=== PATIENT | male | born 1960 | race Caucasian/White ===

== ENCOUNTER → 2016-11-04 | Outpatient (CLI) | payer OTHER ==
[~2016-11-04] MED LIST: ACETAMINOPHEN325 MG PO; ACETYLCYSTE200 MG/M2 INH; ADULT ONE DAI200 MCG PO; ADVIL200 M1 PO; ALDACTONE25 MG PO; AMLODIPINE BESYL5 MG PO; ANTACID650 MG PO; ANTI-GAS166 MG PER TUBE; APAP500 PER TUBE; ARANESP 6060 MCG/0.3 SUBQ; CARDURA4 MG PER TUBE; CARVEDILOL3.125 MG PO; CATAPRES0.1 MG PO; CHOLESTYRAMINE P4 GM PER TUBE; CIPRO250 M2 PO; CLONIDINE-TTS0.3 MG TRANSDERM; CLOTRIMAZOLE 1%15 G1 TOP; COREG25 MG PO; COUMADIN 4 MG TA4 M1 PO; CREON 10 CAPSUL1 CA1 PER TUBE; CREON DR 12,001 EACH PO; DEMADEX20 MG PO; DUONEB 2.5-0.5 M3 ML INH; ERYTHROMYCIN250 MG PER TUBE; FLOMAX0.4 MG PO; FLORINEF ACETA0.1 MG PO; HEPARIN 1,100 UNIT/1 SUBQ; HUMULINR100; HUMULINR100 SUBQ; HYDRALAZINE HC100 MG PER TUBE; HYDROCERIN CREA1 JAR TOP; IBUPROFEN 400400 M1; IRON325 PO; KEFLEX500 MG PO; LANTISEPTIC OI113 GM TOP; LASIX 80 MG TAB80 MG PO; LEVEMIR FL100 UNIT/1 SUBQ; LEVEMIR SUBQ; LEVEMIR100 UNIT/1 SUBQ; LOMOTIL TABLET1 EACH PO; LOPERAMIDE 2 MG2 M1 PO; LOPERAMIDE2 MG PO; LOPRESSOR50 PER TUBE; MAGNESIUM400 MG PO; MUCINEX TA600 MG/TA2 PER TUBE; NICOTINE GUM2 MG PO; NITROGLYCERIN0.4 MG TOP; NORCO 5-325 TA1 EACH PO; NORVASC10 MG PER TUBE; NOVASOURCE REN237 ML PER TUBE; NOVOLOG100 UNIT/M; NOVOLOG100 UNIT/M SUBQ; ONDANSETRON HCL4 M2 IV PUSH; OXYCODONE HCL 55 MG PO; PANCRELIPASE PO; PEPCID20 MG PER TUBE; PERIOGARD473 ML MM; PRILOSEC 20 MG20 MG PO; PRINIVIL20 MG PER TUBE; PRINIVIL20 MG PO; PROBIOTIC1 EAC1 PER TUBE; PROTEIN975 MG PER TUBE; PROTONIX40 M1 PO; REGLAN10 MG IV PUSH; RENALCAL250 M1 PO; SODIUM CHLORI1000 ML IV; TRANSDERM-SCO1 PATC1 TD; UNICOMPLEX M TA1 TA1 PO; VANCOMYCIN500 MG/VIA IVPB; ZENPEP DR 20,01 EACH PO; ZOLOFT50 MG PER TUBE; ZOSYN 2.25 GR2.25 GM IVPB
[2016-11-04 08:44] VITALS: BP 165/65
== END | disposition home or self-care (01) ==
LOC: SPEC 07:09
DX: T85.518A Breakdown (mechanical) of other gastrointestinal prosthetic devices, implants and grafts, initial encounter (principal)

== ENCOUNTER → 2016-11-26 | Outpatient (CLI) | payer OTHER ==
[~2016-11-26] VITALS: Ht 180.3 cm; Wt 51.3 kg
[2016-11-26 09:45] VITALS: BP 118/68
== END | disposition home or self-care (01) ==
LOC: SPEC 09:33
DX: T85.598A Other mechanical complication of other gastrointestinal prosthetic devices, implants and grafts, initial encounter (principal)

== ENCOUNTER → 2016-12-22 | Outpatient (CLI) | payer OTHER ==
[2016-12-22 09:21] VITALS: BP 183/85
== END ==
LOC: SPEC 05:19
DX: Z43.1 Encounter for attention to gastrostomy (principal); K91.2 Postsurgical malabsorption, not elsewhere classified; K21.9 Gastro-esophageal reflux disease without esophagitis; I12.0 Hypertensive chronic kidney disease with stage 5 chronic kidney disease or end stage renal disease; E11.22 Type 2 diabetes mellitus with diabetic chronic kidney disease; N18.6 End stage renal disease; Z99.2 Dependence on renal dialysis; Z87.891 Personal history of nicotine dependence; Z79.4 Long term (current) use of insulin

== ENCOUNTER → 2016-12-31 | Outpatient (CLI) | payer OTHER ==
[2016-12-31 07:53] VITALS: BP 166/83
[2016-12-31 10:00] VITALS: BP 180/88
== END ==
LOC: SPEC 08:00
DX: K94.23 Gastrostomy malfunction (principal); E11.9 Type 2 diabetes mellitus without complications; K21.9 Gastro-esophageal reflux disease without esophagitis; D64.89 Other specified anemias; N18.6 End stage renal disease; I12.0 Hypertensive chronic kidney disease with stage 5 chronic kidney disease or end stage renal disease; Z87.891 Personal history of nicotine dependence

== ENCOUNTER → 2017-02-25 | Outpatient (CLI) | payer OTHER ==
[~2017-02-25] VITALS: Ht 180.3 cm; Wt 55.3 kg
--- NOTE | ~2017-02-25 | CNG ---
[facility] [place] [address] CYTO-NONGYN REPORT PROCEDURE Name: SUSI MUKHERJEE Room #: REG VIANEY Desir.#: [id number] Admission: 02/25/17 Date of : 56 Discharge: Report #: [id number] Path Case #: [id number] CYTOPATHOLOGY REPORT COLLECTION DATE: 02/25/2017 RECEIVED DATE: 02/25/2017 SUBMITTING PHYS: Dr. Yonatan Masters OTHER PHYS: CLINICAL HISTORY: Right lung space drainage SPECIMEN(S) RECEIVED: A.Pleural fluid, Right * * * * * * * * * * * * FINAL DIAGNOSIS: A. Right pleural fluid: - No malignant cells identified. - Rare mesothelial cells with acute and chronic inflammatory cells present in a background of debris. PATHOLOGIST: Piper Calderon M.D. REPORT ELECTRONICALLY SIGNED BY: Piper Calderon M.D. DATE/TIME: 02/28/2017 16:39 * * * * * * * * * * * * GROSS PATHOLOGY: A. Pleural fluid, Right: The specimen is submitted unfixed, labeled "Saloni Tomabhijit Gallego". Received by the Cytology Department is 43 mL of clear yellow fluid. One ThinPrep slide and a cell block were prepared. (mm 02.25.2017) SPOOL WINDER(S): MARCELINO Ulrich[facility] INITIAL CPT CODE(S): A; 16674, 34780 Professional services performed by [facility] at [facility] [address] [place] [address] Technical services performed by [facility] at [address] [place] [address]., [address], [place] [address]. [facility] [address] [place] [address], [facility] [address] [place] [address] [facility] [address] [place] [address] CYTO-NONGYN REPORT PROCEDURE Name: SUSI MUKHERJEE Room #: XOCHITL Feldman#: [id number] Admission: 02/25/17 Date of : 56 Discharge: Report #: [id number] Path Case #: [id number] PHONE: [phone] DIRECTOR: Hosea Pascal M.D. * * * END OF REPORT * * *
[2017-02-25 07:51] VITALS: BP 169/74
[2017-02-25 08:48] LABS: APTT 36.9 Seconds (24.5-32.8); INR 1.3; PROTIME 13.3 Seconds (9.3-11.4)
== END ==
LOC: SPEC 06:50
PROVIDERS: Radiology Diagnostic Radiology
DX: J90 Pleural effusion, not elsewhere classified (principal)

== ENCOUNTER → 2017-03-18 | Outpatient (CLI) | payer OTHER ==
[2017-03-18 09:30] VITALS: BP 164/82
== END | disposition home or self-care (01) ==
LOC: SPEC 09:23
DX: K94.23 Gastrostomy malfunction (principal); E11.22 Type 2 diabetes mellitus with diabetic chronic kidney disease; I12.0 Hypertensive chronic kidney disease with stage 5 chronic kidney disease or end stage renal disease; N18.6 End stage renal disease; D53.9 Nutritional anemia, unspecified; K27.9 Peptic ulcer, site unspecified, unspecified as acute or chronic, without hemorrhage or perforation; Z79.4 Long term (current) use of insulin; Z87.891 Personal history of nicotine dependence; Z86.73 Personal history of transient ischemic attack (TIA), and cerebral infarction without residual deficits; Z98.890 Other specified postprocedural states; Z85.89 Personal history of malignant neoplasm of other organs and systems; Z88.8 Allergy status to other drugs, medicaments and biological substances; Z79.899 Other long term (current) drug therapy

== ENCOUNTER → 2017-05-13 | Outpatient (CLI) | payer OTHER ==
[2017-05-13 08:29] VITALS: BP 116/60
== END ==
LOC: SPEC 06:21
DX: K94.23 Gastrostomy malfunction (principal); E11.22 Type 2 diabetes mellitus with diabetic chronic kidney disease; I12.0 Hypertensive chronic kidney disease with stage 5 chronic kidney disease or end stage renal disease; N18.6 End stage renal disease; D64.9 Anemia, unspecified; K21.9 Gastro-esophageal reflux disease without esophagitis; F10.10 Alcohol abuse, uncomplicated; F17.200 Nicotine dependence, unspecified, uncomplicated; K27.9 Peptic ulcer, site unspecified, unspecified as acute or chronic, without hemorrhage or perforation; Z88.8 Allergy status to other drugs, medicaments and biological substances; Z79.899 Other long term (current) drug therapy; Z79.4 Long term (current) use of insulin; Z98.890 Other specified postprocedural states

== ENCOUNTER 2017-05-30 11:52 | Inpatient (IN) | payer OTHER ==
[~2017-05-30] VITALS: Ht 165.1 cm; Wt 54.7 kg
--- NOTE | ~2017-05-30 | 2DMMODE ---
[facility] [place] [address] 2 D/M-MODE ECHOCARDIOGRAM Name: SUSI MUKHERJEE Room #: 240- ADM IN .R.#: [id number] Admission: 05/30/17 Attend Phys: Gordon Lakhani MD Discharge: Date of : 56 Date of Service: 05/31/17 1246 Report #: [id number] THIS REPORT FOR: //name// APPROVED REPORT Study performed: 05/31/2017 11:43:22 EXAM: Comprehensive 2D, Doppler, and color-flow Echocardiogram Status: routine BSA: 1.60 HR: 57 bpm BP: 87/58 mmHg Other Information Study Quality: Technically Limited Technically limited study due to limited window availability. Subcoastal only.. Indications Bradycardia, elevated troponin, question NV. 2D Dimensions RVDd: 42.42 mm LVEF(%): 60.08 (>50%) IVSd: 11.08 (7-11mm) LVDd: 38.47 mm PWd: 10.79 (7-11mm) LVDs: 26.36 (25-40mm) Blake's LVEF: 60.08 % Aortic Valve AoV Peak Desmond.: 1.65 m/s AO Peak Gr.: 10.83 mmHg LVOT Max P.93 mmHg LVOT Max V: 0.99 m/s Mitral Valve E/A Ratio: 1.2 MV Decel. Time: 189.39 ms MV E Max Desmond.: 0.71 m/s MV A Desmond.: 0.58 m/s MV PHT: 54.92 ms Pulmonary Valve PV Peak Desmond.: 0.69 m/s PV Peak Gr.: 1.90 mmHg [facility] [address] [address] 2 D/M-MODE ECHOCARDIOGRAM Name: SUSI MUKHERJEE Room #: [address] [place] [address] [place] [facility].#: [id number] Admission: 05/30/17 Attend Phys: Gordon Lakhani MD Discharge: Date of : 56 Date of Service: 05/31/17 1246 Report #: [id number] Tricuspid Valve TR Peak Desmond.: 3.70 m/s RAP Estimate: 5.00 mmHg TR Peak Gr.: 54.73 mmHg PA Pressure: 60.00 mmHg Left Ventricle The left ventricle is normal size. There is normal left ventricular wall thickness. Left ventricular systolic function is normal. LVEF is 50-55%. Moderate diastolic dysfunction is present (pseudonormal filling). Right Ventricle Right ventricle appears mildy dilated and hypokinetic. Atria Left atrium is mildly dilated. Right atrium is mildly dilated. Aortic Valve Aortic valve is mildly calcified. No aortic regurgitation is present. There is no aortic valvular stenosis. Mitral Valve The mitral valve is normal in structure. Trace to mild mitral regurgitation. Tricuspid Valve The tricuspid valve is normal in structure. Mild to moderate tricuspid regurgitation. Estimated PAP is 60mmHg. Pulmonic Valve The pulmonary valve is normal in structure. Mild pulmonic regurgitation. Great Vessels IVC is normal in size and collapses >50% with inspiration. Pericardium Right pleural effusion. <Conclusion> The left ventricle is normal size. LVEF is 50-55%. Right ventricle appears mildy dilated and hypokinetic. Left atrium is mildly dilated. [facility] [address] [place] [address] 2 D/M-MODE ECHOCARDIOGRAM Name: SUSI MUKHERJEE Room #: 240-P ADM IN M.R.#: [id number] Admission: 05/30/17 Attend Phys: Gordon Lakhani MD Discharge: Date of : 56 Date of Service: 05/31/17 1246 Report #: [id number] Right atrium is mildly dilated. Aortic valve is mildly calcified. The mitral valve is normal in structure. Trace to mild mitral regurgitation. The pulmonary valve is normal in structure. Mild pulmonic regurgitation. Right pleural effusion. <ELECTRONICALLY SIGNED> By: Jan Zhou MD 05/31/17 1246 1246 124 Jan Zhou MD /INF
--- NOTE | ~2017-05-30 | H ---
[facility] [place] [address] HISTORY AND PHYSICAL Name: SUSI MUKHERJEE Room #: 240-P ADM IN M.R.#: [id number] Admission: 05/30/17 Attend Phys: Gordon Lakhani MD Discharge: Date of : 56 Report #: [id number] THIS REPORT FOR: //name// CC: Gordon Lakhani DATE OF SERVICE: 05/30/2017 HISTORY OF PRESENT ILLNESS: The patient is a 56-year-old male who has been at [facility] since 08/31/2016 after being transferred from [facility] after an intracranial bleed with right-sided weakness. The patient at that time had hypertensive emergency with left basal ganglia and thalamus bleed. The patient was not a candidate for surgical intervention. The patient has been on mechanical ventilation since that time. The patient was able to wean on the mechanical ventilation to trach shield intermittently, but unfortunately, he was not able to tolerate the trach shield. The patient had 3 cardiac arrests during his stay at [facility] and the last one was about a week ago where his troponin went all the way up to 14. The patient at that time was bradycardic and he was resuscitated with atropine and being back on the mechanical ventilation. The patient had another episode of bradycardia with a heart rate of 16 yesterday and for this reason he was transferred to [facility] for further treatment. The patient had an echocardiogram recently that showed ejection fraction of 70% with normal wall motion. The patient is dialysis-dependent. The patient has a history of gastroparesis with requirement of replacement of his J-port on many occasions. PAST MEDICAL HISTORY: Significant for the above-mentioned hypertension; end-stage renal disease, on hemodialysis; type 1 diabetes mellitus with very brittle diabetes mellitus; pancreatitis with chronic pancreatitis and chronic diarrhea; asthma. The patient has a history of alcohol and tobacco abuse. 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 The patient had multiple pneumonias, mainly Pseudomonas pneumonia. The patient had the above-mentioned 3 cardiac arrests. The patient has a history of hypothyroidism, severe debility and failure to thrive. The patient has a chronic loculated right pleural effusion that was drained at one point during his stay at [facility]. MEDICATIONS: Reviewed and reconciled. ALLERGIES: IBUPROFEN AND NONSTEROIDAL ANTI-INFLAMMATORY MEDICATIONS. SOCIAL HISTORY: The patient quit smoking about 3 years ago, but he smoked about 1 pack a day for 20 years. The patient denies any recent history of smoking, alcohol use or drug use. FAMILY HISTORY: Noncontributory. [address] [address] HISTORY AND PHYSICAL Name: SUSI MUKHERJEE Room #: [address] [place] [address] IN M.R.#: [id number] Admission: 05/30/17 Attend Phys: Gordon Lakhani MD Discharge: Date of : 56 Report #: [id number] REVIEW OF SYSTEMS: The patient is on the mechanical ventilation. PHYSICAL EXAMINATION: VITAL SIGNS: Showed a temperature of 96.0, pulse 55, respirations 16, blood pressure 82/50. Last blood pressure is 106/55. HEAD AND NECK: Unremarkable. NECK: Supple. LUNGS: Crackles involving both lung barber. CARDIAC: S1, S2, without any murmur or gallop. ABDOMEN: Benign. Bowel sounds were positive. EXTREMITIES: Without any edema. LABORATORY DATA: The patient's lab showed white count of 7.7, hemoglobin 8.6, hematocrit 26.9, platelet count 261. The patient's chemistry showed hemoglobin of 10.2, hematocrit 30, sodium 127, potassium 4.3, chloride 92, bicarbonate 19, BUN 75, creatinine 3.3 and glucose of 377. The patient's chest x-ray showed no significant changes with overall appearance of the chest, chronic changes on the right. Basic metabolic panel again showed sodium of 124, potassium 4.3, chloride 89, bicarbonate 20, BUN 69, creatinine 3.7, glucose of 395, calcium 9.1, magnesium 2.8. Troponin 1.63. BNP was 55,817. A 12-lead EKG showed sinus rhythm with borderline prolonged MT interval, nonspecific intraventricular conduction delay, anteroseptal infarct ____ borderline T-wave abnormalities on the inferior leads. ABGs showed a pH of 7.38, pCO2 of 38 and pO2 of 113. Repeated blood from today showed sodium of 129, potassium 4.4, chloride 92, bicarbonate 22, BUN 77, creatinine 3.8. CBC showed white count of 7.4, hemoglobin 9.0, hematocrit 27.1, platelet count 234. ASSESSMENT: 1. Non-ST elevation myocardial infarction. 2. Status post bradycardia with code. 3. Chronic obstructive pulmonary disease. 4. Chronic respiratory failure with requirement of mechanical ventilation. 5. Right loculated pleural effusion. 6. End-stage renal disease, on hemodialysis. 7. Lower respiratory tract infection. PLAN: The patient will be admitted to the hospital with the above-mentioned diagnoses. The patient to continue his current medications. He is to be evaluated by Pulmonary, Cardiology and Nephrology. The patient to resume the [facility] [place] [address] HISTORY AND PHYSICAL Name: SUSI MUKHERJEE Room #: 240-P ADM IN M.R.#: [id number] Admission: 05/30/17 Attend Phys: Gordon Lakhani MD Discharge: Date of : 56 Report #: [id number] tube feeding. We will continue to monitor the patient and follow his recommendation for subspecialties. <ELECTRONICALLY SIGNED> By: Gordon Lakhani MD 06/01/17 0709 [id number] 0757 Gordon Lakhani MD /nt
--- NOTE | ~2017-05-30 | HC ---
[facility] [place] [address] CONSULTATION Name: SUSI MUKHERJEE Room #: 240-P ADM IN M.R.#: [id number] Admission: 05/30/17 Attend Phys: Gordon Lakhani MD Discharge: Date of : 56 Report #: [id number] THIS REPORT FOR: //name// CC: Gordon Lakhani DATE OF SERVICE: 05/30/2017 REASON FOR CONSULTATION: End-stage renal disease requiring chronic hemodialysis. HISTORY OF PRESENT ILLNESS: This is a 56-year-old male who has been at [facility] here in [place] since 08/2016. Reports from that location are scarce. It appears he has been there on chronic ventilation via tracheostomy. He is also chronically on hemodialysis on a thrice weekly schedule. He recently apparently has had some elevation of his troponin levels that has been followed at that location. I received a report verbally from one of the dialysis nurse at the [facility] that there was a problem with his tracheostomy earlier today. He became bradycardic. He was resuscitated. He was moved here to [facility] and came in through the Emergency Room and is now in the Intensive Care Unit. The patient remains with tracheostomy in place. At this time, he is ventilating well although he is on 70% FiO2. He has been holding the blood pressure in the 100s systolic range. He apparently had some very severe bradycardia earlier and got some atropine. Now is running heart rates around 56-60 range and again is oxygenating fairly well. In review of records and in talking with the patient (although he is inconsistent in his responses) indicates that he has end-stage renal disease. He has been dialyzing using a nice left upper arm fistula. He had a several long hospitalizations in 2013 here at [facility] and had been cared by our group at that time. Then he had significant diabetic nephropathy, problems with volume overload, hyperkalemia. Eventually, he was started on chronic hemodialysis late in July 2014. He has been on chronic hemodialysis since that time. There was a couple of year of period of time over which I do not have a lot of records. He has still been dialyzing. He has a left upper arm fistula in place which is brachiobasilic vein transpositional fistula placed in 2014. The records from [facility] indicates he ended up some time about a year ago 06/2016 with acute right-sided weakness. He had hypertensive crisis and had an intracranial hemorrhage in the left basal ganglia and thalamus. That was treated conservatively. He has ended up with continued right hemiparesis since that time. He has had PEG tube in place and a tracheostomy, which appears to be more related to a subglottic squamous cell carcinoma, for which he had surgery and radiation therapy and his trach has been in place since that time. He was a long-term smoker. He had previous problems with recurring pancreatitis. Longstanding hypertension, he has had previous right inguinal hernia repair. He has had some decubitus ulcers while at [facility]. Again, he is functioning on a tracheostomy and a feeding tube at this time. [facility] [address] [place] [address] CONSULTATION Name: SUSI MUKHERJEE Room #: 240-P [facility] IN M.R.#: [id number] Admission: 05/30/17 Attend Phys: Gordon Lakhani MD Discharge: Date of : 56 Report #: [id number] Medications are inconsistent and I do not have the actual list from [facility]. The list upon admission here shows Aranesp, cholestyramine, Tricor, hydralazine 25 mg b.i.d., Levemir and NovoLog, DuoNeb inhaler, levothyroxine 0.075 mg daily, Reglan 10 mg q.6 hours, metoprolol 12.5 mg b.i.d., Creon, but some of these are listed from years ago, so I do not know if there are still active or not and again I do not have a good list from [facility]. FAMILY HISTORY: Noncontributory. SOCIAL HISTORY: He has been in the hospital for at least the past year, obviously disabled. REVIEW OF SYSTEMS: He denies pain at this time. He denies dyspnea, once we get past questions like that his answers were unreliable. PHYSICAL EXAMINATION: GENERAL: Frail appearing gentleman seen in the Intensive Care Unit. He does awaken. He responds with that inconsistent answers. He has a tracheostomy in place. SKIN: Cool and dry. VITAL SIGNS: Blood pressure 100/65, heart rate 57, respiratory rate 24, oxygen saturation 100% on FIO2 0.70. HEENT: Shows pupils are equal and reactive. Sclerae nonicteric. Oral mucosa is moist. NECK: Shows a tracheostomy in place. CHEST: Shows coarse rhonchi bilaterally in all lung barber, it is fairly symmetrical. CARDIOVASCULAR: Heart has a borderline bradycardia with a sinus rhythm. ABDOMEN: Has a PEG tube in place, is not currently being used. Abdomen is soft and nontender with normal bowel sounds. EXTREMITIES: Show extreme diffuse muscle atrophy, feet are in heel protectors. He has a very nice left upper arm brachiobasilic vein trans position and fistula in place with excellent bruit and thrill. NEUROLOGIC: He has a bit of a squeeze available in his right arm, otherwise right hemiparesis is present fairly good straight and movement in his left arm. LABORATORY DATA: Sodium 124, potassium 4.3, chloride 89, bicarbonate 20, BUN 68, creatinine 3.7, glucose 395, calcium 9.1, magnesium 2.8. Troponin 1.63. White count 7.7, hemoglobin 8.6, hematocrit 26.9, platelets 261,000. No blood gas. Chest x-ray is reviewed, it is very mal rotator looks like there is some chronic right pleural effusion, tracheostomy is in place. ASSESSMENT: [facility] [address] [place] [address] CONSULTATION Name: SUSI MUKHERJEE Room #: [facility] ADM IN .R.#: [id number] Admission: 05/30/17 Attend Phys: Gordon Lakhani MD Discharge: Date of : 56 Report #: [id number] 1. End-stage renal disease. He last dialyzed 3 days ago. In spite of his bradycardia, his potassium levels are actually today and his heart rate is actually held fairly well. He does not need emergent dialysis. Volume is fairly good. In fact his blood pressure is somewhat marginal. We would have trouble with so much ultrafiltration at this point. We will schedule him for dialysis first thing in the morning and evaluate how much ultrafiltration we can get up at that time. We will add him on a 3 Potassium dialysate. 2. Respiratory failure on chronic vent. 3. Bradycardia. I am uncertain as to the etiology. There is report of tracheostomy malfunction earlier today and there is also report of an elevated troponin either could certainly contribute. Nevertheless, his hemodynamic been fairly stable at this time. 4. Previous left intracranial hemorrhage with right hemiparesis, persistent. 5. History of carcinoma of the head and neck with chronic tracheostomy. 6. Anemia, chronic, I am sure he is on chronic erythropoietin therapy. We will need to see if hemoglobin changes or if this is an acute alteration. 7. Severe chronic debility. <ELECTRONICALLY SIGNED> By: Amos Mendez MD 06/01/17 1046 [id number] Julian Santa MD /nt
--- NOTE | ~2017-05-30 | HC ---
[facility] [place] [address] CONSULTATION Name: SUSI MUKHERJEE Room #: 240- ADM IN M.R.#: [id number] Admission: 05/30/17 Attend Phys: Gordon Lakhani MD Discharge: Date of : 56 Report #: [id number] THIS REPORT FOR: //name// CC: Gordon Lakhani DATE OF SERVICE: 05/31/2017 ATTENDING PHYSICIAN: Gordon Lakhani M.D. REASON FOR CONSULTATION: Followup possible antibiotic management. HISTORY OF PRESENT ILLNESS: A 56-year-old white man, resided at [facility] for a prolonged period of time with history of respiratory failure, ventilator dependent; renal failure, on hemodialysis; chronic tracheostomy on account of previous carcinoma of the larynx, developed significant bradycardiac cardiac arrest and transferred to [place]. At present in the AICU, unarousable, undergoing hemodialysis, ventilator dependent. The patient has recently developed non-ST myocardial infarction with troponin up to 14. PAST MEDICAL HISTORY: 1. Hypertension. 2. End-stage renal disease, on hemodialysis. 3. Diabetes mellitus. 4. Chronic pancreatitis. 5. Recurrent diarrhea, antibiotic related. 6. History of squamous cell carcinoma of the larynx, status post surgery, radiation and chemotherapy, requiring chronic tracheostomy. 7. Multiple episodes of pneumonias with pseudomonas and methicillin-resistant Staphylococcus aureus. 8. Status post percutaneous gastrostomy. 9. History of pleural effusion. DRUG ALLERGIES: IBUPROFEN AND ANTI-INFLAMMATORY DRUGS. MEDICATIONS: The patient is on treatment with isosorbide mononitrate, aspirin, pantoprazole, levothyroxine, metoclopramide, simethicone, insulin Lispro, cholestyramine, scopolamine, Lactobacillus acidophilus, lipase, protease, amylase per feeding tube; insulin detemir, atorvastatin, sertraline, Carafate, Atrovent inhalation treatments, p.r.n. ondansetron, p.r.n. sublingual nitroglycerin. The patient had been on broad-spectrum antibiotic coverage in case of positive blood cultures, but no longer so. SOCIAL HISTORY: Unable to obtain, see old records. FAMILY HISTORY: Unable to obtain, see old records. [facility] [address] [place] [address] CONSULTATION Name: SUSI MUKHERJEE Room #: 240-P [facility] IN ..#: [id number] Admission: 05/30/17 Attend Phys: Gordon Lakhani MD Discharge: Date of : 56 Report #: [id number] PHYSICAL EXAMINATION: GENERAL: Chronically debilitated man in the intensive care unit on ventilator and undergoing hemodialysis. VITAL SIGNS: Temperature 97.5, pulse 61, respirations 15, BP 106/55, 87/58. HEENT: Pupils equal and reactive. Mouth unable to examine. NECK: Tracheostomy in place. LUNGS: Few basilar crackles. HEART: S1, S2. No gallop. ABDOMEN: Jejunostomy tube in place, soft, no masses or megaly. GENITALIA AND RECTAL: Deferred. EXTREMITIES: Atrophy of muscle groups. NEUROLOGIC: Unable to evaluate. LABORATORY DATA: Sodium 129, potassium 4.4, CO2 was 20 yesterday, 22 today; BUN 77, creatinine 3.8, albumin 2.2 g/dL. NT-proBNP 55,817, troponin mildly elevated at 1.63. WBC 7.4, hemoglobin 9, platelets 234,000. ABGs yesterday revealed pH 7.34, pCO2 of 38, pO2 of 113, bicarbonate 20.8. These set of gases is on FiO2 of 70%, tidal volume 500 and 5 of PEEP. MICROBIOLOGY DATA: Sputum culture was ordered and is pending. Note is made that the patient had Pseudomonas aeruginosa and methicillin-resistant Staphylococcus aureus previously at the referring hospital. ASSESSMENT: 1. Recent myocardial infarction and cardiac arrest with significant bradycardia., 2. End-stage renal disease, on hemodialysis. 3. Diabetes mellitus. 4. History of left intracranial hemorrhage, right hemiparesis. 5. History of carcinoma of the larynx, status post surgery, radiation and chemotherapy. 6. Anemia of chronic disease. SUGGESTIONS: Recommend continue current regimen. No systemic antibiotics for time being. We will possibly restart antibiotics for fevers, leukocytosis, or active signs of infection. Dr. Anderson and Dr. Lakhani, thank you for requesting my suggestions in the care of your patient. <ELECTRONICALLY SIGNED> By: Mehdi Bashir MD 06/01/17 1143 1003 1258 Mehdi Bashir MD /nt
--- NOTE | ~2017-05-30 | EKG ---
[address] [address] ELECTROCARDIOGRAM REPORT Name: SUSI MUKHERJEE Room #: 170-1 ADM IN M.R.#: [id number] Admission: 05/30/17 Attend Phys: Gordon Lakhani MD Discharge: Date of : 56 Report #: [id number] THIS REPORT FOR: //name// [facility] ED Test Date: 2017-05-30 Test Time: 12:02:33 Pat Name: SUSI MUKHERJEE Department: Room: 170 Gender: M Certified Pest Control Technician: Colin ALAS : 1960 Requested By: Cristofer Calix Order Number: [id number] MD: Daniel Bashir Measurements Intervals Nathalie Rate: 55 P: 34 DC: 206 QRS: 78 QRSD: 123 T: -16 QT: 503 QTc: 482 Interpretive Statements Sinus rhythm Borderline prolonged DC interval Nonspecific intraventricular conduction delay Anteroseptal infarct, old Borderline T abnormalities, inferior leads Compared to ECG 11/14/2014 12:37:16 Intraventricular conduction delay now present T-wave abnormality now present Myocardial infarct finding still present Electronically Signed On 05-30-2017 15:46:43 CDT by Daniel Bashir [email or web address] <ELECTRONICALLY SIGNED> By: Daniel Bashir MD 05/30/17 1546 120 120 Daniel Bashir MD /EPI
[~2017-05-30 11:52] MED LIST changes: +HYDRALAZINE 2525 MG PO; -HYDRALAZINE HC100 MG PER TUBE; +LOPRESSOR25 PER TUBE; -LOPRESSOR50 PER TUBE
[2017-05-30 12:00] VITALS: BP 82/50
[2017-05-30 12:21] LABS: HEMATOCRIT 26.9 % (42.0-52.0); HEMOGLOBIN 8.6 gm/dL (14.0-18.0); MCH 28.7 pg (26.0-34.0); MCV 89.7 fL (80.0-100.0); RDW 19.6 % (10.5-14.5); WBC 7.7 thou/uL (4.0-11.0)
[2017-05-30 12:26] LABS: POC CA IONIZED 4.5 mg/dL (4.5-5.3); POC CREATININE 3.3 mg/dL (0.6-1.3); POC HEMOGLOBIN 10.2 g/dL (14.0-18.0); POC POTASSIUM 4.3 mmol/L (3.5-5.1)
[2017-05-30 12:39] LABS: CALCIUM 9.1 mg/dL (8.5-10.1); CREATININE 3.7 mg/dL (0.7-1.3); POTASSIUM 4.3 mmol/L (3.5-5.1)
[2017-05-30 12:47] LABS: MAGNESIUM 2.8 mg/dL (1.8-2.4)
[2017-05-30 12:52] LABS: TROPONIN-I 1.63 ng/mL (<0.04-0.07)
[2017-05-30 14:17] VITALS: BP 106/57
[2017-05-30] MEDS ORDERED: TRAMADOL 50 MG50 MG PO (14:26)
[2017-05-30] MEDS ORDERED: ASPIR 8181 MG PO (14:27)
[2017-05-30] MEDS ORDERED: SYNTHROID75 MCG PER TUBE (15:30)
[2017-05-30] MEDS ORDERED: TRICOR145 MG PER TUBE (15:37)
[2017-05-30 17:23] VITALS: BP 106/55
[2017-05-30 19:36] LABS: ABG SAMPLE TYPE ARTERIAL; BE(vivo) -4.4 mmol/L (-2 to +3); HCO3 20.8 mmol/L (22.0-26.0); LACTATE 1.22 mmol/L (0.5-2.0); O2(CT) 12.7 mL/dL (15.0-23.0); O2Hb 96.7 % (92.0-98.0); PCO2 38.8 mmHg (35.0-45.0); PO2 113.6 mmHg (80.0-100.0); STICK SITE R.RADIAL; TIDAL VOLUME 500 ml; pH 7.348 (7.360-7.450)
[2017-05-31] VITALS (29 sets, daily range): BP systolic 76–122; BP diastolic 51–85
[2017-05-31 05:14] LABS: HEMATOCRIT 27.1 % (42.0-52.0); MCH 28.5 pg (26.0-34.0); MCHC 33.1 g/dL (28.0-37.0); RBC 3.15 mil/uL (4.50-6.00); RDW 19.5 % (10.5-14.5); WBC 7.4 thou/uL (4.0-11.0)
[2017-05-31 05:23] LABS: ALBUMIN 2.2 g/dL (3.4-5.0); CALCIUM 9.1 mg/dL (8.5-10.1); CREATININE 3.8 mg/dL (0.7-1.3); PHOSPHORUS 3.5 mg/dL (2.5-4.9); POTASSIUM 4.4 mmol/L (3.5-5.1)
[2017-06-01] VITALS (24 sets, daily range): BP systolic 89–124; BP diastolic 52–79
[2017-06-01 04:11] LABS: HEMATOCRIT 25.6 % (42.0-52.0); HEMOGLOBIN 8.6 gm/dL (14.0-18.0); MCH 28.9 pg (26.0-34.0); MCHC 33.6 g/dL (28.0-37.0); PLATELET COUNT 241 thou/uL (150-400); RBC 2.97 mil/uL (4.50-6.00); RDW 19.7 % (10.5-14.5); WBC 8.4 thou/uL (4.0-11.0)
[2017-06-01 04:14] LABS: MANUAL DIFF YES
[2017-06-01 04:17] LABS: CALCIUM 8.4 mg/dL (8.5-10.1); CREATININE 2.4 mg/dL (0.7-1.3); POTASSIUM 3.8 mmol/L (3.5-5.1)
[2017-06-01 09:43] LABS: ABSOLUTE NEUTROPHILS 7.1 thou/uL (1.4-8.2); ANISOCYTOSIS 2+; HYPOCHROMASIA 2+; MICROCYTES 2+; PLATELET ESTIMATE NORMAL; TOTAL CELL COUNT 100
[2017-06-02] VITALS (25 sets, daily range): BP systolic 55–128; BP diastolic 35–86
[2017-06-02 04:44] LABS: BASOPHILS 0.8 % (0.0-2.0); EOSINOPHILS 5.2 % (0.0-3.0); HEMATOCRIT 25.7 % (42.0-52.0); HEMOGLOBIN 8.5 gm/dL (14.0-18.0); LYMPHOCYTES 11.7 % (24.0-44.0); MCH 28.7 pg (26.0-34.0); MCHC 33.2 g/dL (28.0-37.0); MCV 86.5 fL (80.0-100.0); MONOCYTES 11.2 % (1.0-8.0); PLATELET COUNT 213 thou/uL (150-400); POLYS 71.1 % (36.0-66.0); RBC 2.97 mil/uL (4.50-6.00); RDW 19.3 % (10.5-14.5)
[2017-06-02 04:50] LABS: MANUAL DIFF NO
[2017-06-02 04:51] LABS: CALCIUM 8.8 mg/dL (8.5-10.1); POTASSIUM 4.2 mmol/L (3.5-5.1)
[2017-06-02] MEDS ORDERED: PANTOPRAZOLE SO40 M1 PO (11:04)
[2017-06-02] MEDS ORDERED: IMDUR 30 MG TAB30 M1 PO (11:04)
[2017-06-02] MEDS ORDERED: CARAFATE 11 GM/10 M1 PER TUBE (11:04)
== END 2017-06-02 16:30 | DRG 208 ==
LOC: ER 11:52 → EROBS 13:55 → ICU 13:55 → EROBS 17:24 → ICU 17:30
PROVIDERS: Emergency Medicine; Internal Medicine; Internal Medicine Nephrology; Internal Medicine Pulmonary Disease
PROC: 5A1935Z Respiratory Ventilation, Less than 24 Consecutive Hours (ICD-10-PCS; principal; 2017-05-30)
PROC: 5A1D70Z Performance of Urinary Filtration, Intermittent, Less than 6 Hours Per Day (ICD-10-PCS; 2017-05-31)
DX: J95.03 Malfunction of tracheostomy stoma (principal); I21.4 Non-ST elevation (NSTEMI) myocardial infarction; G93.40 Encephalopathy, unspecified; N18.6 End stage renal disease; K86.1 Other chronic pancreatitis; J96.10 Chronic respiratory failure, unspecified whether with hypoxia or hypercapnia; J90 Pleural effusion, not elsewhere classified; J44.0 Chronic obstructive pulmonary disease with (acute) lower respiratory infection; E46 Unspecified protein-calorie malnutrition; I13.2 Hypertensive heart and chronic kidney disease with heart failure and with stage 5 chronic kidney disease, or end stage renal disease; R00.1 Bradycardia, unspecified; E11.22 Type 2 diabetes mellitus with diabetic chronic kidney disease; K21.9 Gastro-esophageal reflux disease without esophagitis; D63.8 Anemia in other chronic diseases classified elsewhere; K52.9 Noninfective gastroenteritis and colitis, unspecified; J45.909 Unspecified asthma, uncomplicated; E03.9 Hypothyroidism, unspecified; R62.7 Adult failure to thrive; J22 Unspecified acute lower respiratory infection; R13.10 Dysphagia, unspecified; I25.10 Atherosclerotic heart disease of native coronary artery without angina pectoris; I50.9 Heart failure, unspecified; Z68.20 Body mass index [BMI] 20.0-20.9, adult; Z99.2 Dependence on renal dialysis; I25.2 Old myocardial infarction; Z79.4 Long term (current) use of insulin; Z87.11 Personal history of peptic ulcer disease; Z93.1 Gastrostomy status; Z79.82 Long term (current) use of aspirin; Z79.899 Other long term (current) drug therapy; Z88.8 Allergy status to other drugs, medicaments and biological substances; Z87.891 Personal history of nicotine dependence; Z93.0 Tracheostomy status; Z85.21 Personal history of malignant neoplasm of larynx; Z88.6 Allergy status to analgesic agent; Z28.21 Immunization not carried out because of patient refusal
CPT/HCPCS: 10203; 32100